=== PATIENT | male | born 1975 | race Caucasian/White ===

== ENCOUNTER 2017-04-06 14:46 | Emergency (ER) | payer OTHER ==
[~2017-04-06] VITALS: Wt 80.0 kg
[2017-04-06] MEDS ORDERED: SOD CHLORIDE 0.9% 1,000 ML IV STA (15:01)
[2017-04-06] MEDS ORDERED: LEVETIRACETAM 1000 MG (PMX) 100 ML IVPB STA (15:01)
[2017-04-06 15:29] LABS: ADD SCAN DIFF NO
[2017-04-06 15:32] LABS: BASOPHILS % 0.5 % (0.0-2.0); EOSINOPHILS # 0.1 10^3/ul (0.0-0.5); HEMATOCRIT 34.9 % (42.0-52.0); HEMOGLOBIN 12.4 g/dl (14.0-18.0); LYMPHOCYTES # 2.4 10^3/ul (0.8-2.9); LYMPHOCYTES % 39.9 % (15.0-51.0); MEAN CORPUSCULAR HEMOGLOBIN 31.5 pg (29.0-33.0); MEAN CORPUSCULAR HGB CONC 35.5 g/dl (32.0-37.0); MEAN CORPUSCULAR VOLUME 88.6 fl (82.0-101.0); MONOCYTE # 0.6 10^3/ul (0.3-0.9); MONOCYTES % 9.4 % (0.0-11.0); NEUTROPHIL # 2.8 10^3/ul (1.6-7.5); NEUTROPHILS % 46.9 % (39.0-77.0); PLATELET COUNT 182 10^3/UL (140-415); RED BLOOD COUNT 3.94 10^6/ul (4.70-6.10); RED CELL DISTRIBUTION WIDTH 11.8 % (11.5-14.5)
[2017-04-06 15:49] LABS: ALBUMIN 3.9 g/dl (3.3-4.9); CHLORIDE 103 mmol/L (97-110); SODIUM 139 mmol/L (135-144)
[2017-04-06 15:50] LABS: POTASSIUM 4.7 mmol/L (3.5-5.1)
[2017-04-06 15:51] LABS: CREATININE 0.87 mg/dl (0.61-1.24)
[2017-04-06 15:52] LABS: ALANINE AMINOTRANSFERASE 26 IU/L (13-69); ALBUMIN/GLOBULIN RATIO 1.39; ALKALINE PHOSPHATASE 61 IU/L (42-121); ANION GAP 16 (8-16); ASPARTATE AMINO TRANSFERASE 19 IU/L (15-46); BLOOD UREA NITROGEN 26 mg/dl (7-20); CALCIUM 8.7 mg/dl (8.4-10.2); CARBON DIOXIDE 25 mmol/L (21-31); GLUCOSE 78 mg/dl (70-220); SALICYLATE < 1.0 mg/dl (5.0-30.0); TOTAL PROTEIN 6.7 g/dl (6.1-8.1)
[2017-04-06 15:53] LABS: ACETAMINOPHEN < 10.0 ug/ml (10.0-30.0); ETHANOL < 10.0 mg/dl
--- NOTE | 2017-04-06 16:43 | RADRPT ---
PROCEDURE: CT Brain without contrast. CLINICAL INDICATION: Seizure TECHNIQUE: A multiplanar CT of the brain was performed on a CT scanner utilizing axial imaging fro m the skull base through the vertex without IV contrast. The CTDIvol is 43.68 mGy and the DLP is 72 0.23 mGycm. One or more of the following dose reduction techniques were utilized: Automated exposu re control, adjustment of the mA and/or kV according to patient size, use of iterative reconstructio n technique. COMPARISON: None FINDINGS: No evidence of intracranial hemorrhage or abnormal extra-axial fluid collection. The brain parenchyma is normal attenuation morphology with preservation of win white differentiatio n and age appropriate size of the ventricles and subarachnoid spaces. The basal cisterns, posterior fossa contents, brainstem, craniocervical junction, orbits, pituitary axis, paranasal sinuses, mastoid air cells, and calvarium are unremarkable. IMPRESSION: 1. No intracranial hemorrhage or acute intracranial abnormality. MRI may be considered for followup as clinically warranted. RPTAT:AAJJ Physician Jessica Date Time Electronically viewed and signed by Physician Jessica on 04/06/2017 16:43 JEREMIAH/
[2017-04-06 17:05] LABS: BARBITURATES Positive (NEGATIVE)
[2017-04-06 17:06] LABS: BENZODIAZEPINES Negative (NEGATIVE); CANNABINOIDS Negative (NEGATIVE); OPIATES Negative (NEGATIVE)
[2017-04-06 17:11] LABS: COCAINE Negative (NEGATIVE)
--- NOTE | 2017-04-06 18:48 | PSY ---
Date/Time of Note Date/Time of Note DATE: 04/06/17 TIME: 18:43 Psychiatric Subjective Eval Consent Pt consented to telemedicine: Yes Subjective Evaluation Chief Complaint: "I WANT SET MYSELF ON FIRE" AND I SUFFER FROM SEIZURE Reason for consult: Suicidal ideation History of present illness Pt reports he has been hearing voices telling him to kill himself. The voices tell him to set himself on fire. He no longer feels safe. He reports his moods are "good" and denies s/s of depression and or manjinder. He reports he has been taking his medications, including zyprexa 10mg at bedtime and has not been using illicit drugs. Past psychiatric history Pt diagnosed with a schizoaffective disorder, bipolar type. Receives SSI for his condition. He takes zyprexa and ativan as an outpatient. He had a suicide attempt 11 months ago and a hospitalization. Hospitalization: yes Family History Denies Medical history Problems Medical Problems: (1) Patient left without being seen Status: Acute Allergies: Coded Allergies: No Known Allergy (Unverified , 02/28/16) Substance Abuse Substance use: No known substance abuse Social History Marital status: single Level of education: Unknown DPA/Conservatorship: No Occupation/Jail: [employer] Psychiatric Objective Eval Mental Status Examination: Appearance: Disheveled Eye Contact: Fair Psychomotor Activity: Slow Behavior: Guarded Speech: Soft AFFECT: Flat Mood: Appropriate/Full Though Process: Linear Thought Content: Hallucinations Suicidal: Yes Homicidal: No On 72 hour hold: No Orientation: x3 Cognition: Alert Insight: Impared Judgement: Impared Laboratory Results Laboratory Tests Test 04/06/17 15:20 04/06/17 16:46 White Blood Count 6.010^3/ul Red Blood Count 3.9410^6/ul Hemoglobin 12.4g/dl Hematocrit 34.9% Mean Corpuscular Volume 88.6fl Mean Corpuscular Hemoglobin 31.5pg Mean Corpuscular Hemoglobin Concent 35.5g/dl Red Cell Distribution Width 11.8% Platelet Count 72637^3/UL Mean Platelet Volume 11.0fl Neutrophils % 46.9% Lymphocytes % 39.9% Monocytes % 9.4% Eosinophils % 2.0% Basophils % 0.5% Nucleated Red Blood Cells % 0.0/100WBC Neutrophils # 2.810^3/ul Lymphocytes # 2.410^3/ul Monocytes # 0.610^3/ul Eosinophils # 0.110^3/ul Basophils # 0.010^3/ul Nucleated Red Blood Cells # 0.010^3/ul Sodium Level 139mmol/L Potassium Level 4.7mmol/L Chloride Level 103mmol/L Carbon Dioxide Level 25mmol/L Anion Gap 16 Blood Urea Nitrogen 26mg/dl Creatinine 0.87mg/dl Glucose Level 78mg/dl Lactic Acid Level 1.4mmol/L Calcium Level 8.7mg/dl Total Bilirubin 0.0mg/dl Direct Bilirubin 0.00mg/dl Indirect Bilirubin 0.0mg/dl Aspartate Amino Transf (AST/SGOT) 19IU/L Alanine Aminotransferase (ALT/SGPT) 26IU/L Alkaline Phosphatase 61IU/L Total Protein 6.7g/dl Albumin 3.9g/dl Globulin 2.80g/dl Albumin/Globulin Ratio 1.39 Salicylates Level < 1.0mg/dl Acetaminophen Level < 10.0ug/ml Ethyl Alcohol Level < 10.0mg/dl Urine Opiates Screen Negative Urine Barbiturates Positive Urine Amphetamines Screen Negative Urine Benzodiazepines Screen Negative Urine Cocaine Screen Negative Urine Cannabinoids Negative Assessment and Plan Assessment/Diagnosis Lemitar I: Unspecified Psychotic Disorder - history of schizoaffective disorder, bipolar type per record Recommendation/Plan Medication Management Would give zyprexa 10mg while waiting for transfer Psychotherapy N/A Pt. Caregiver/Family Education N./A Follow-up/Disposition Please place on 5150 for danger to self. Transfer to inpatient psychiatry. 5150 Recommendation: Place AYAD Galdamez April 06, 2017 18:48
--- NOTE | 2017-04-06 18:53 | ERD ---
ER Documentation Chief Complaint Date/Time DATE: 04/06/17 TIME: 18:46 Chief Complaint "I WANT SET MYSELF ON FIRE" AND I SUFFER FROM SEIZURE HPI This 41-year-old male presents emergency room because he told 911 that he wanted to set himself on fire with a propane torch. According the paramedics the patient had a brief seizure lasting approximately 20 seconds in which the patient was protecting his head very well. Patient says that he has seizures but has not had them for a very long time. He is not currently on medications. He has no physical symptoms and denies any pain. He states that he is hungry and would like some food. ROS All systems reviewed and are negative except as per history of present illness. Allergies Allergies: Coded Allergies: No Known Allergy (Unverified , 02/28/16) PMhx/Soc Medical and Surgical Hx: pt denies Medical Hx, pt denies Surgical Hx Hx Alcohol Use: No Hx Substance Use: No Hx Tobacco Use: No Smoking Status: Unknown if ever smoked Physical Exam Vitals Vital Signs Date Time Temp Pulse Resp B/P Pulse Ox O2 Delivery O2 Flow Rate FiO2 04/06/17 14:53 98.1 92 18 103/63 96 Physical Exam Const: [] No distress Head: Atraumatic Eyes: Normal Conjunctiva, EOMI, SALLY ENT: Normal External Ears, Nose and Mouth. Neck: Full range of motion..~ No meningismus. Resp: Clear to auscultation bilaterally Cardio: Regular rate and rhythm, no murmurs Abd: Soft, non tender, non distended. Normal bowel sounds Skin: No petechiae or rashes Back: No midline or flank tenderness Ext: No cyanosis, or edema Neur: Awake and alert and oriented 3, cranial nerves II through XII intact, no cerebellar deficits Psych: Normal Mood and Affect Result Diagram: 04/06/17 1520 04/06/17 1520 Results 24 hrs Laboratory Tests Test 04/06/17 15:20 04/06/17 16:46 White Blood Count 6.010^3/ul Red Blood Count 3.9410^6/ul Hemoglobin 12.4g/dl Hematocrit 34.9% Mean Corpuscular Volume 88.6fl Mean Corpuscular Hemoglobin 31.5pg Mean Corpuscular Hemoglobin Concent 35.5g/dl Red Cell Distribution Width 11.8% Platelet Count 80287^3/UL Mean Platelet Volume 11.0fl Neutrophils % 46.9% Lymphocytes % 39.9% Monocytes % 9.4% Eosinophils % 2.0% Basophils % 0.5% Nucleated Red Blood Cells % 0.0/100WBC Neutrophils # 2.810^3/ul Lymphocytes # 2.410^3/ul Monocytes # 0.610^3/ul Eosinophils # 0.110^3/ul Basophils # 0.010^3/ul Nucleated Red Blood Cells # 0.010^3/ul Sodium Level 139mmol/L Potassium Level 4.7mmol/L Chloride Level 103mmol/L Carbon Dioxide Level 25mmol/L Anion Gap 16 Blood Urea Nitrogen 26mg/dl Creatinine 0.87mg/dl Glucose Level 78mg/dl Lactic Acid Level 1.4mmol/L Calcium Level 8.7mg/dl Total Bilirubin 0.0mg/dl Direct Bilirubin 0.00mg/dl Indirect Bilirubin 0.0mg/dl Aspartate Amino Transf (AST/SGOT) 19IU/L Alanine Aminotransferase (ALT/SGPT) 26IU/L Alkaline Phosphatase 61IU/L Total Protein 6.7g/dl Albumin 3.9g/dl Globulin 2.80g/dl Albumin/Globulin Ratio 1.39 Salicylates Level < 1.0mg/dl Acetaminophen Level < 10.0ug/ml Ethyl Alcohol Level < 10.0mg/dl Urine Opiates Screen Negative Urine Barbiturates Positive Urine Amphetamines Screen Negative Urine Benzodiazepines Screen Negative Urine Cocaine Screen Negative Urine Cannabinoids Negative Current Medications Medications (Trade) Dose Ordered Sig/[place] Route PRN Reason Start Time Stop Time Status Last Admin Dose Admin Sodium Chloride 1,000 ml @ 1,000 mls/hr Q1H STAT IV 04/06/17 15:01 04/06/17 16:00 DC 04/06/17 15:44 Levetiracetam (Keppra 1,000mg/ 100ml (Pmx)) 100 ml @ 400 mls/hr ONCE STAT IVPB 04/06/17 15:01 04/06/17 15:15 DC 04/06/17 15:44 Procedures/MDM Patient with suicidal homicidal ideations would like to stay in the hospital. In the ambulance bay the patient had another seizure lasting a few seconds in which she was shaking. He maintained his head just off the stretcher for the duration of the seizure. It did not appear to be a real seizure. He was given a bit of the doubt a seizure workup was performed which the patient had a lactic acid of only 1.4 which is very unlikely for having generalized tonic- clonic seizures. Patient later admitted he was faking seizures and has had seizures in the past but has not had them today.. This admission is consistent with what I had seen as well as the patient's diagnostic workup. He was loaded with a gram of Keppra. Believe the patient would benefit best from psychiatric admission. At this point I believe the patient is medically cleared in the sense that I see no medical problems will prevent him from psychiatric admission. CT head interpretation: I see no acute process, no hemorrhage no mass-effect no midline shift, no abnormal masses, no skull fracture. Patient has not been available by [facility] tele-psychiatry yet. His disposition is still pending. Anticipate that he will be transferred to a psychiatric facility. Departure Diagnosis: Primary Impression: Suicidal ideation Condition: Stable RENEE AWAN DO April 06, 2017 18:53
[2017-04-07] MEDS ORDERED: OLANZAPINE 5 MG TAB PO ONE ×2 (06:30→18:00)
[2017-04-07] MEDS ORDERED: HALOPERIDOL 5 MG INJ IM ONE (18:00)
--- NOTE | 2017-04-07 18:12 | PSY ---
Date/Time of Note Date/Time of Note DATE: 04/07/17 TIME: 21:06 Psychiatric Subjective Eval Consent Pt consented to telemedicine: Yes Subjective Evaluation Patient location: emergency Chief Complaint: "I WANT SET MYSELF ON FIRE" AND I SUFFER FROM SEIZURE Reason for consult: Suicidal ideation History of present illness HPI: The patient is a 41 yo male with a ho psychosis and substance use disorder. He was discharged from inpatient psych 04/05. On 04/06 he was picked up by police for erratic, bizarre, bheavior in the streets and taken to the ER. Yesterday, when pt was seen by psych, he reported that he had been hearing voices telling him to kill himself. The voices were telling him to set himself on fire. He reported that his moods are "good" and denied s/s of depression and or manjinder. He reported he had been taking his medications, including zyprexa 10mg at bedtime and has not been using illicit drugs. Today pt reports CAH and si are gone. Reports he wants to go back home. Mina any psychosis or Si. Had no explanation for whcy he was discharged and admitted so quickly. Denied recent drug use. Past Psych Hx: extensive hx of admissions and suicidality PMHx: epilepsy Meds: Zyprexa as well as numerous antiseizure mreds All: as in medical note MSE: cooperative, quite friendly adn engaging, minimizing and evasive, smiling and euthymic, almost oddly happy and happy go uziel, organized, no delusions, somewhat minimizing and evasive, denies avh or delusions or si//hi Imp: 41 yo male with recent admit/discharged, and read [place] to ER with CAH to kill self just yesterday. Today resolved. The severity of his recent suicidality is concerning, and the rapidity of its resolution is also unusual. He reports he receives outpatient treatment nearby and his outpatient psychiatrist and he are well engaged. If his outpatient psychiatrist can attest to gracia fact that the rapidity of thispt's recovery is normal and the outpatient psychiatrist is willing to see him very soon and monitor him, then he could be discharged. Otherwise, that he was hospitalized as recently as 04/05 and then very suicidal with CAH to kill self on 04/06 suggests that the patient's rapid improvements are not actual improvements adn he requires a longer time of stability before he can be considered safe and dischargable. Would continue zyprexa 10mg while in the ER Hospitalization: yes Medical history Problems Medical Problems: (1) Patient left without being seen Status: Acute (2) Suicidal ideation Status: Acute Allergies: Coded Allergies: No Known Allergy (Unverified , 04/06/17) Social History Marital status: single Level of education: Unknown DPA/Conservatorship: No Occupation/Fdc: [employer] Psychiatric Objective Eval Mental Status Examination: Laboratory Results Laboratory Tests Test 04/06/17 15:20 04/06/17 16:46 White Blood Count 6.010^3/ul Red Blood Count 3.9410^6/ul Hemoglobin 12.4g/dl Hematocrit 34.9% Mean Corpuscular Volume 88.6fl Mean Corpuscular Hemoglobin 31.5pg Mean Corpuscular Hemoglobin Concent 35.5g/dl Red Cell Distribution Width 11.8% Platelet Count 25412^3/UL Mean Platelet Volume 11.0fl Neutrophils % 46.9% Lymphocytes % 39.9% Monocytes % 9.4% Eosinophils % 2.0% Basophils % 0.5% Nucleated Red Blood Cells % 0.0/100WBC Neutrophils # 2.810^3/ul Lymphocytes # 2.410^3/ul Monocytes # 0.610^3/ul Eosinophils # 0.110^3/ul Basophils # 0.010^3/ul Nucleated Red Blood Cells # 0.010^3/ul Sodium Level 139mmol/L Potassium Level 4.7mmol/L Chloride Level 103mmol/L Carbon Dioxide Level 25mmol/L Anion Gap 16 Blood Urea Nitrogen 26mg/dl Creatinine 0.87mg/dl Glucose Level 78mg/dl Lactic Acid Level 1.4mmol/L Calcium Level 8.7mg/dl Total Bilirubin 0.0mg/dl Direct Bilirubin 0.00mg/dl Indirect Bilirubin 0.0mg/dl Aspartate Amino Transf (AST/SGOT) 19IU/L Alanine Aminotransferase (ALT/SGPT) 26IU/L Alkaline Phosphatase 61IU/L Total Protein 6.7g/dl Albumin 3.9g/dl Globulin 2.80g/dl Albumin/Globulin Ratio 1.39 Salicylates Level < 1.0mg/dl Acetaminophen Level < 10.0ug/ml Ethyl Alcohol Level < 10.0mg/dl Urine Opiates Screen Negative Urine Barbiturates Positive Urine Amphetamines Screen Negative Urine Benzodiazepines Screen Negative Urine Cocaine Screen Negative Urine Cannabinoids Negative ANTONIETA HURST April 07, 2017 18:12
[2017-04-07] MEDS ORDERED: LORAZEPAM 2 MG INJ ONE (18:59)
[2017-04-07] MEDS ORDERED: LORAZEPAM 2 MG INJ IM ONE (19:00)
--- NOTE | 2017-04-07 20:28 | EN ---
Date/Time of Note Date/Time of Note DATE: 04/07/17 TIME: 20:25 ER Progress Note This patient is still in continuation for placement in a psychiatric facility. He became extremely agitated and argument with another psych patient that was nearby. Security walked the patient away from the patient around emergency room where he began threatening everyone in stating he been in [facility] times and he knows how to hurt people. Gave him 5 mg of Haldol and 6 mg of Ativan intramuscularly in order to sedate him. Shortly after medication was given he apologized for his behavior. Earlier in the evening he was denying suicidal homicidal ideations. Tele- psychiatry saw him once again where he still stated that he was not suicidal but according to tele-psych printed circuit board pcb designer he did not believe the patient and does still recommend to hold. RENEE AWAN DO April 07, 2017 20:28
[2017-04-08 13:14] VITALS: TEMP 98
[2017-04-08 17:09] VITALS: BP 135/71; PULSE 78; RESP 18
--- NOTE | 2017-04-08 17:50 | EN ---
Date/Time of Note Date/Time of Note DATE: 04/08/17 TIME: 17:50 ER Progress Note 41-year-old male is not found placement. He still denies suicidal or homicidal ideations and has been completely calm and cooperative in the emergency room today. No intervention required per RENEE AWAN DO April 08, 2017 17:50
[2017-04-08] MEDS ORDERED: HALOPERIDOL 5 MG INJ IM ONE (18:30)
--- NOTE | 2017-04-08 19:15 | PSY ---
Date/Time of Note Date/Time of Note DATE: 04/08/17 TIME: 19:09 Psychiatric Subjective Eval Subjective Evaluation Patient location: emergency Chief Complaint: "I WANT SET MYSELF ON FIRE" AND I SUFFER FROM SEIZURE Reason for consult: Suicidal ideation History of present illness HPI: The patient is a 41 yo male with a ho psychosis and substance use disorder. He was discharged from inpatient psych 04/05. On 04/06 he was picked up by police for erratic, bizarre, bheavior in the streets and taken to the ER. On 04/06, when pt was seen by psych, he reported that he had been hearing voices telling him to kill himself. The voices were telling him to set himself on fire. He reported that his moods are "good" and denied s/s of depression and or manjinder. He reported he had been taking his medications, including zyprexa 10mg at bedtime and has not been using illicit drugs. On 04/07 pt was seen by this MD and reported CAH and si are gone. Reported he wanted to go back home. Denied any psychosis or Si. Had no explanation for why he was discharged and admitted so quickly. Denied recent drug use. MSE yesterday was normal but decided to monitor pt further given recent SI. Today pt wanted a re eaval again. Story as above. He has now been without SI for 2 days. MSE exam completely normal. No signs or sxs of depression, no psychosis, no si, relatable, cooperative, pleasant. Sleeping well. simply wants to be discharged. Past Psych Hx: extensive hx of admissions and suicidality with quick resolution PMHx: epilepsy Meds: Zyprexa as well as numerous antiseizure mreds All: as in medical note MSE: cooperative, quite friendly adn engaging, smiling and euthymic, appropriate affect, organized, no delusions, denies avh or delusions or si//hi Imp: 41 yo male with recent admit/discharged, presented with SI and psychosis and now these sxs have been resolved for 2 days. He has no sxs or signs of depression or psychosis or Si. He is appropriate, cooperative, and has an essentially normal MSE.This is consistent with his history of relatively rapid resolution of suicidality. At this point he is not an acute risk of harm to himself or others and cannot be forcibly held. However, he is at chronic risk of harm to himself given his drug use. -pt no longer needs to be admitted but should be given an appointment within 2- 3 days -pt should also make sure to have supply of zyprexa Hospitalization: yes Medical history Problems Medical Problems: (1) Patient left without being seen Status: Acute (2) Suicidal ideation Status: Acute Allergies: Coded Allergies: No Known Allergy (Unverified , 04/06/17) Social History Marital status: single Level of education: Unknown DPA/Conservatorship: No Occupation/Detention: [employer] ANTONIETA HURST April 08, 2017 19:15
[2017-04-08] MEDS ORDERED: OLAN5TAB5 PO (20:12)
== END 2017-04-09 07:51 | disposition home or self-care (01) ==
LOC: E/R 14:46
DX: R45.851 Suicidal ideations (principal); R40.2142 Coma scale, eyes open, spontaneous, at arrival to emergency department; R40.2252 Coma scale, best verbal response, oriented, at arrival to emergency department; R40.2362 Coma scale, best motor response, obeys commands, at arrival to emergency department
CPT/HCPCS: 36415; 70450; 80053; 80306; 80307; 83605; 85025; 96372; 96374; J1630; J1953; J2060; J7030; Z7502; Z7610